=== PATIENT | male | born 1995 | race Caucasian/White ===

== ENCOUNTER 2023-02-11 19:39 | Outpatient (CLI) | payer OTHER, SELFPAY ==
--- NOTE | 2023-02-21 14:01 | W.PM.SLEEP ---
Sleep Study Details Details Interpreting Provider: Venancio Date of Sleep Study: 02/11/23 Sleep Study Details: STUDY TYPE:? Home unattended ? BMI:? 33.7 ORDERING PROVIDER:Florian Olvera INDICATION:? Concerns about sleep apnea ? SLEEP SUMMARY:? 316.5 minutes monitored RESPIRATORY SUMMARY:? AHI 5.1, supine 6.8, left lateral 1.3 Low oxygen 84 13.6% of study oxygen less than 90% Snoring 2% PERIODIC LIMB MOVEMENTS OF SLEEP:? Not recorded during home study CARDIAC:? Range 48-93, mean 59.6 IMPRESSION:? Mild obstructive sleep apnea with supine position dependency. Significant hypo oxygenation with 13.6% of the study oxygen was less than 90%. RECOMMENDATION: Treatment options include AutoSet CPAP, dental appliance and/or airway expansion surgery. Once effective therapy is established an overnight oximetry should be performed to ensure that further cardiopulmonary evaluation is not indicated.
== END 2023-02-11 19:40 | disposition home or self-care (01) ==
LOC: SLEEP 19:40
PROVIDERS: PCP Nurse Practitioner Family; Visit Provider Nurse Practitioner Family
DX: G47.33 Obstructive sleep apnea (adult) (pediatric) (principal)
CPT/HCPCS: 95806